=== PATIENT | female | born 1955 | race Caucasian/White ===

== ENCOUNTER 2023-11-06 08:06 | Outpatient (AMB) | payer BC, SELFPAY ==
--- NOTE | 2023-11-06 08:15 | AM.OFFWIN_ITS ---
Intake Vital Signs 11/06/23 08:24 Height 5 ft 1 in Weight 127 lb BMI 24.0 BP 110/70 Blood Pressure Location Lt brachial Position Sitting Pulse 71 Pulse Source Pulse Oximeter Temp 98.3 F Temp Source Oral Pulse Oximetry (%) 97 Oxygen Delivery Method Room Air Intake Visit Reasons: EP tight chest phlem discolored 262-190 Intake Note: pt is here for c.o tight chest congestion, phlem discolored Patient Tobacco Use Status: Never used Tobacco Allergies diclofenac [Arthrotec] Allergy (Unknown, Verified 11/06/23 08:16) Swelling misoprostol [Arthrotec] Allergy (Unknown, Verified 11/06/23 08:16) Swelling Do you need a note to return to daycare/school/sports/work: Yes HPI HPI Comments History of Present Illness Details 68 y/o female who presents to walk [facility] with c/o chest tightness, productive cough and hard of hearing on both ears. She reports that symptoms st arted last Friday. She has been taking OTC cold/cough remedies with minimal relief. Her PCP Rxd Cough medication with Codeine yesterday. [facility] Social History Patient Tobacco Use Status: Never used Tobacco Review of Systems Const All systems reviewed & are unremarkable except as noted in HPI and below Physical Exam Vital Signs: Last Vital Signs Temp 98.3 F 11/06/23 08:24 Pulse 71 11/06/23 08:24 BP 110/70 11/06/23 08:24 Pulse Ox 97 11/06/23 08:24 Oxygen Delivery Method Room Air 11/06/23 08:24 BMI result Body Mass Index 24.0 Const General: comfortable and no acute distress HEENT Head: Yes normocephalic Ears: external ears normal, TM abnormal obstructed by cerumen and unable to visualize TM bilaterally General nose exam: Abnormal mucous membranes and turbinates present boggy and erythematous and Epistaxis present on the right anterior source Face and sinus: Yes sinuses nontender Mouth: oropharynx normal and moist mucous membranes Throat: Yes posterior oropharynx normal Resp Effort & Inspection: normal respiratory effort Auscultation: clear to auscultation bilaterally Cardio Rate: regular rate Rhythm: regular rhythm Office Procedures Cerumen Removal Details: Patient tolerated procedure well. Advised to start using Debrox for 7 days. May rtc if not improved. From which ear canal was the cerumen removed: bilateral Removal: irrigation Notes: patient tolerated procedure well 13043-Bod Irrigation/Lavage Assessment & Plan Assessment & Plan (1) Chest congestion: Code(s): R09.89 - Other specified symptoms and signs involving the circulatory and respiratory systems Plan: - continue with cough medication (2) Cerumen impaction: Code(s): H61.20 - Impacted cerumen, unspecified ear Qualifiers: Laterality: bilateral Qualified Code(s): H61.23 - Impacted cerumen, bilateral Plan: - Debrox for 7 days - Ear lavage in clinic Orders: Orders AMB Cerumen Removal Today H61.23 - Impacted cerumen, bilateral Medications: New carbamide peroxide 6.5% (Debrox) 5 drps otic (ears) BID 15 mL 0RF 7 days Coding Level of Care Code Est Pt Level 3 (18882) Diagnoses Chest congestion R09.89 Bilateral impacted cerumen H61.23 Laterality: bilateral CPT Codes Office Procedure - CPT: 76012-Jvt Irrigation/Lavage ([id number]) Time Spent (min) 15
[2023-11-06 08:24] VITALS: BP 110/70; PULSE 71; TEMP 36.8; O2SAT 97; BMI 24.0
== END 2023-11-06 10:07 | disposition home or self-care (01) ==
PROVIDERS: PCP Internal Medicine; Visit Provider Nurse Practitioner Family
DX: R09.89 Other specified symptoms and signs involving the circulatory and respiratory systems (principal); H61.23 Impacted cerumen, bilateral
CPT/HCPCS: 69209; 99213

== ENCOUNTER 2023-12-11 08:01 | Outpatient (AMB) | payer BC, SELFPAY ==
--- NOTE | 2023-12-11 08:11 | AM.OFFWIN_ITS ---
Intake Vital Signs 12/11/23 08:12 Height 5 ft 1 in BP 108/62 Blood Pressure Location Rt brachial Position Sitting Pulse 84 Pulse Source Pulse Oximeter Temp 98.8 F Temp Source Oral Pulse Oximetry (%) 98 Oxygen Delivery Method Room Air Intake Visit Reasons: EP Chronic Cough Intake Note: pt says has chest pressure and has a cough and has been using cough meds had neg covid test Tue pt says all started Sun pt said she did have a sore throat for 2 days and that went away Patient Tobacco Use Status: Never used Tobacco Allergies diclofenac [Arthrotec] Allergy (Unknown, Verified 12/11/23 08:14) Swelling misoprostol [Arthrotec] Allergy (Unknown, Verified 12/11/23 08:14) Swelling HPI HPI Comments History of Present Illness Details 68 y/o female patient who presents to [facility] in clinic with c/o cough since Friday. Reports trying OTC cough remedies with no relief. [facility] Social History Patient Tobacco Use Status: Never used Tobacco Review of Systems Const All systems reviewed & are unremarkable except as noted in HPI and below Physical Exam Vital Signs: Last Vital Signs Temp 98.8 F 12/11/23 08:12 Pulse 84 12/11/23 08:12 BP 108/62 12/11/23 08:12 Pulse Ox 98 12/11/23 08:12 Oxygen Delivery Method Room Air 12/11/23 08:12 Const General: comfortable and no acute distress Orientation/consciousness: patient oriented x3 HEENT Head: Yes normocephalic Ears: external ears normal and TM's normal bilaterally General nose exam: Normal nasal mucous membranes and turbinates present Face and sinus: Yes sinuses nontender Mouth: moist mucous membranes Throat: Yes posterior oropharynx normal Resp Effort & Inspection: normal respiratory effort and able to speak in complete sentences Auscultation: clear to auscultation bilaterally, no crackles, no rales, no rhonchi and no wheezes Cardio Rate: regular rate Rhythm: regular rhythm Neuro General: patient oriented x3 Assessment & Plan Assessment & Plan (1) Cough in adult: Code(s): R05.9 - Cough, unspecified Plan: - OTC cough remedies - Rest - Warm fluids. Coding Level of Care Code Est Pt Level 3 (17882) Diagnoses Cough in adult R05.9 Time Spent (min) 15
[2023-12-11 08:12] VITALS: BP 108/62; PULSE 84; TEMP 37.1; O2SAT 98
== END 2023-12-11 10:32 | disposition home or self-care (01) ==
PROVIDERS: PCP Internal Medicine; Visit Provider Nurse Practitioner Family
DX: R05.9 Cough, unspecified (principal)
CPT/HCPCS: 99213

== ENCOUNTER 2025-04-15 07:54 | Outpatient (AMB) | payer BC, SELFPAY ==
--- OUTSIDE RECORDS SUMMARY | 2025-04-15 07:57 | XMS_ITS | Clinical Summary ---
Author Organization [facility] Address [address] [place] [address] Care Team Providers Care Workplace Rehabilitation Officer Name Role Phone Unavailable Primary Care Provider Unavailabl e Social History Tobacco Use Types Packs/Day Years Used Date Smoking Tobacco: Never Assessed Comments Unknown Sex and Gender Information Value Date Recorded Sex Assigned at Not on file Legal Sex Female 10:30 PM EST Gender Identity Not on file Sexual Orientation Not on file Plan of Treatment Health Maintenance Due Date Last Done Comments Breast Cancer Screening 1954 DTaP,Tdap,and Td Vaccines (1 - Tdap) 1973 Pneumococcal Vaccine: 50+ Ye ars (1 of 1 - PCV) 2004 Zoster Vaccines (1 of 2) 2004 Colorectal Cancer Screening: Colonoscopy 08/25/2022 Falls Risk Assessment 08/25/2022 Hepatitis C Screening 08/25/2022 Osteoporosis Screening (Bone Density Screening) 08/25/2022 Social Influencers of Health Screening 08/25/2022 COVID-19 Vaccine (1 - 2023-2 5 season) 2024 Depression Screening 09/22/2024 Influenza Vaccine (#1) 2025 RSV Immunization Adult Patie nts (1 - 1-dose 75+ series) 2029 HIB Vaccines Aged Out No longer eligi ble based on patient's age to complete this topic HPV Vaccines Aged Out No longer eligi ble based on patient's age to complete this topic Hepatitis A Vaccines Aged Out No long er eligible based on patient's age to complete this topic Hepatitis B Vaccines Aged Out No long er eligible based on patient's age to complete this topic IPV Vaccines Aged Out No longer eligi ble based on patient's age to complete this topic MMR Vaccines Aged Out No longer eligi ble based on patient's age to complete this topic Meningococcal ACWY Vaccine Aged Out N o longer eligible based on patient's age to complete this topic Meningococcal B Vaccine Aged Out No l onger eligible based on patient's age to complete this topic RSV Immunization Patients Un mauro 20 months Aged Out No longer eligible b ased on patient's age to complete this topic Varicella Vaccines Aged Out No longer eligible based on patient's age to complete this topic
--- OUTSIDE RECORDS SUMMARY | 2025-04-15 07:57 | XMS_ITS | Patient Health Record ---
Author Organization [facility] mason [place] Address [address] [place] [address] Care Team Providers Care Bread Slicer Machine Name Role Phone Natanael Del Angel MD Primary Care Provider Tejas Denis Unavailable [phone] Allergies Allergen (clinical drug ingredient) Drug/Non Drug Allergy documented on EMR Reaction Allergy Type Onset Date Status diclofenac / misoprostol Arthrotec facial swelling Drug Allergy Active Reason For Referral No Information Medications Medication SIG (Take, Route, Frequency, Duration) Notes Start Date End Date Status Vitamin D (Ergocalciferol) Active Acetaminophen-Codeine #3 300-30 MG (Schedule III Drug) Oral; Duration: 30 Unknown FLUoxetine HCl 20 MG Oral; Duration: 90 Active Vitamin B12 Active LFT . . . .; Duration: . 05/22/2016 Active valACYclovir HCl 500 MG Oral; Duration: 2 Unknown LamISIL 250 MG 1 tablet Orally Once a day; Duration: 30 days 05/22/2016 Active Social History Tobacco use other than smoking: Question Answer Notes Are you an other tobacco user? Yes Problems Problem Type SNOMED Code ICD Code Onset Dates Problem Status W/U Status Risk Notes Problem Tinea unguium (099097405) Tinea unguium (B35.1) Active confirmed Problem Plantar wart (25303584) Plantar wart (B07.0) Active confirmed Plan Of Treatment Pending Test Test Name Order Date [id number] Destruction, 1-14 05/22/2016 Insurance Providers Payer Name Payer Address Payer Phone Subscriber Number Group Number Insured Name Patient Relationship to Insured Coverage Start Date Coverage End Date [facility] [address] [place] [address] [phone] [id number] Renuka Velasquez Self - patient is the insured Medical (General) History Medical History History ICD Code Depression Osteoporosis Measles Mumps Chicken pox Surgical History Surgery Date(Month/Year) section , 01/02/87
--- OUTSIDE RECORDS SUMMARY | 2025-04-15 07:57 | XMS_ITS | Patient Health Record ---
Author Organization [facility] Address [address] [place] [address] Care Team Providers Care Nba Player Name Role Phone RAJWINDER ROJO MD Primary Care Provider Unavailab KASIA Chapman Unavailable [phone] Allergies Allergen (clinical drug ingredient) Drug/Non Drug Allergy documented on EMR Reaction Allergy Type Onset Date Status diclofenac / misoprostol Arthrotec swollen and red fact Drug Allergy Active Results Component Value Reference Range Notes [id number] IGP No Culture 30 Plus Reviewed date:01/18/2025 10:58:27 AM Interpretation: Performing Lab:[facility], [address] [place] [address], Phone - [phone], Director - [facility] Notes/Report: Clinical Information:VAG,CERV [id number] Dates / Results....09/26/2023 Other..............Post Menopausal No. of containers..01 ThinPrep Vial DIAGNOSIS: EPITHELIAL CELL ABNORMALITY. ATYPICAL GLANDULAR CELLS (AGC). Specimen adequacy: Satisfactory for evaluation. Endocervical and/or squamous metaplastic cells (endocervical component) are present. Clinician provided ICD10: Z0 1.419 Additional comment: ELEVATED SQUAMOUS MATURATION IS PRESENT FOR PATIENT AGE Performed by: Joe cardenas, Supervisor Title (ASCP) Electronically signed by: Wendy Dyson MD, Pathologist . . Pathologist provided ICD10: R87.619 Note: The Pap smear is a screening test designed to aid in the detection of premalignant and malignant conditions of the uterine cervix. It is not a diagnostic procedure and should not be used as the sole means of detecting cervical cancer. Both false-positive and false-negative reports do occur. . Test Methodology: This liquid based ThinPrep(R) pap test was screened with the use of an image guided system. HPV Aptima Negative Negative This nucleic acid amplification test detects fourteen high-risk HPV types (16,18,31,33,35,39,45,51,52,56, 58,59,66,68) without differentiation. HPV Genotype Reflex Criteria not met, HPV Genotype not performed. PDF Report Reviewed date:01/10/2025 10:05:45 AM Interpretation: Performing Lab:[facility], [address] [place] [address], Phone - [phone], Director - [facility] Notes/Report: Clinical Information:VAG,CERV [id number] Dates / Results....09/26/2023 Other..............Post Menopausal No. of containers..01 ThinPrep Vial Reason For Referral No Information Medications Medication SIG (Take, Route, Frequency, Duration) Notes Start Date End Date Status Montelukast Sodium 10 MG 1 tablet Orally Once a day Active Calcium Acetate Acti ve Ibuprofen 600 MG 1 tablet with food o r milk as needed Orally Three times a day Active Progesterone Active traZODone HCl 50 MG 1 tablet at bedtime as needed Orally Once a day Active Vitamin D Active Alendronate Sodium 70 MG 1 tablet 30 min utes before the first food, beverage or medicine of the day with plain water Orally Active Albuterol Sulfate HFA 108 (90 Base) MCG/ACT 1 puff as needed Inhalation every 4 hrs Not-Takin g Atorvastatin Calcium 10 MG 1 tablet Orally Once a day Active Social History Tobacco Use: Social History Observation Description Date Details (start date - stop date) Current Smoker NA - NA Sexual History Question Answer Notes Had sex in the past 12 months (vaginal, oral, or anal)? No Have you ever had a Sexually transmitted disease ? No Last menstrual period 1999 AUDIT-C (Standard) Question Answer Notes Did you have a drink contain ing alcohol in the past year? Yes How often did you have a dri nk containing alcohol in the past year? Monthly or less (1 point) How many drinks did you have on a typical day when you were drinking in the past year? 3 or 4 drinks (1 point) How often did you have six o r more drinks on one occasion in the past year? Declined to specify (0 point) Points 2 Interpretation Negative Tobacco Control (Standard) Question Answer Notes Tobacco use: Current smoker How often do you smoke cigarettes? Some days, bu t not every day How many cigarettes a day do you smoke? 5 or les s How soon after you wake up d o you smoke your first cigarette? 6-30 minutes Are you interested in quitting? Thinking about q uitting Problems Problem Type SNOMED Code ICD Code Onset Dates Problem Status W/U Status Risk Notes Problem Tobacco user (166984117) Nicotine dependence, cigarettes, uncomplicated (F17.210) Active confirmed Problem Diverticulosis o f intestine, part unspecified, without perforation or abscess with bleeding (K57.91) Active confirmed Problem COVID-19 (055286798) COVID-19 (U07.1) Active confirmed Vital Signs Temperature 98.0 degrees Fahrenheit 01/25/2025 Blood pressure diastolic 76 mm Hg 01/25/2025 Height 60 in 01/25/2025 Blood pressure systolic 124 mm Hg 01/25/2025 Weight 126 lbs 01/25/2025 BMI 24.61 kg/m2 01/25/2025 Encounters Encounter Location Date Provider Diagnosis [place] [address] [address] 12/28/2024 KASIA NEVES Encounter for gynecological examination (general) (routine) without abnormal findings Z01.419 ; Encounter for screening mammogram for malignant neoplasm of breast Z12.31 and Nicotine dependence, cigarettes, uncomplicated F17.210 [place] [address] [address] 01/25/2025 KASIA NEVES Unspecified abnormal cytological findings in specimens from cervix uteri R87.619 [place] [address] [address] 01/25/2025 KASIA NEVES [place] [address] [address] 01/06/2025 KASIA NEVES Assessments Encounter Date Diagnosis (ICD Code) Assessment Notes Treatment Notes Treatment Clinical Notes Section Notes 12/28/2024 Encounter for gynecological examination (general) (routine) without abnormal findings (ICD-10 - Z01.419) During the visit, the following areas of concern were addressed: Discussed stopping cervical cancer screening as per ASCCP guidelines. Advised continued annual pelvic exams. Patient encouraged to increase her level of exercise. SBE technique encouraged/tau ght. Patient reminded when annual mammogram is due. Patient encouraged to keep colon screening up to date. 12/28/2024 Encounter for screening mammogram for malignant neoplasm of breast (ICD-10 - Z12.31) 01/25/2025 Unspecified abnormal cytological findings in specimens from cervix uteri (ICD-10 - R87.619) Will refer for surgical consult, as I am unable to penetrate her cervix for full evaluation of the FRANK pap. There is also a lesion on the posterior lip of the cervix that I am unable to sample. 12/28/2024 Nicotine dependence, cigarettes, uncomplicated (ICD-10 - F17.210) Encouraged to stop smoking, including cannabis - advised to consider tinctures/edib les, but she states they don't work. Plan Of Treatment Pending Test Test Name Order Date MM Digital Screening Mammogram 3D 2024 Next Appt Details Provider Name:KASIAMartha Araujo, 01/02/2026 08:00:00 AM, [address] [facility], [address], [place], [address], Insurance Providers Payer Name Payer Address Payer Phone Subscriber Number Group Number Insured Name Patient Relationship to Insured Coverage Start Date Coverage End Date [employer] MEDICARE PPO [address] [place] [address] [id number] JANET VILLASENOR Self - patient is the insured Medical (General) History Medical History History ICD Code Mammographic heterogeneous density, bila teral breasts R92.333 Disorder of bone density and structure, unspecified M85.9 Low grade squamous intraepit helial lesion on cytologic smear of cervix (LGSIL) R87.612 Diverticulosis of intestine, part unspecified, without perforation or abscess with bleeding K57.91 COVID-19 U07.1 Surgical History Surgery Date(Month/Year) x 2 tubal ligation Varicose vein procedure 2010 Hospitalization History Reason Date(Month/Year) Diverticulitis 05/2021 childbirth
--- OUTSIDE RECORDS SUMMARY | 2025-04-15 07:57 | XMS_ITS | Clinical Summary ---
Author Organization [employer] Address [address] [place] [address] Care Team Providers Care Software Tools Build Engineer Name Role Phone Unavailable Primary Care Provider Unavailabl e Social History Tobacco Use Types Packs/Day Years Used Date Smoking Tobacco: Never Assessed Comments Unknown Sex and Gender Information Value Date Recorded Sex Assigned at Female 07/22/2022 10:23 AM EDT Legal Sex Female 10:23 AM EDT Gender Identity Female 07/22/2022 10:23 AM EDT Sexual Orientation Straight 07/22/2022 10 :23 AM EDT Plan of Treatment Health Maintenance Due Date Last Done Comments CT Colonography 1954 Colonoscopy 1954 Colorectal Cancer Screening 1954 Depression Screening 1954 FIT DNA/Cologuard 1954 FIT 1954 FOBT 1954 Sigmoidoscopy 1954 Alcohol/Substance Use Screening 1966 Tobacco Screening 1966 DTaP/Tdap/Td Vaccines (1 - Tdap) 1973 Mammogram 1994 Pneumococcal Vaccine: 50+ Years (1 of 1 - PCV) 2004 Zoster Vaccines (1 of 2) 2004 COVID-19 Vaccine (3 - 2023-2 5 season) 2024 11/02/2020, 10/05/2020 Influenza Vaccine (#1) 2025 RSV Patients and Patients Aged 60 years or older (1 - 1-dose 75+ series) 2029 HIB [...] patient's age to complete this topic Meningococcal Vaccine Aged Out No leslie carmela eligible based on patient's age to complete this topic RSV under 20 months Aged Out No longe r eligible based on patient's age to complete this topic Rotavirus Vaccines Aged Out No longer eligible based on patient's age to complete this topic
[2025-04-15 08:19] VITALS: BP 102/64; PULSE 90; TEMP 36.7; O2SAT 98; BMI 23.8
--- NOTE | 2025-04-15 08:19 | AM.OFFWIN_ITS ---
Intake Vital Signs 04/15/25 08:19 Height 5 ft 1 in Weight 126 lb BMI 23.8 BP 102/64 Blood Pressure Location Rt brachial Position Sitting Pulse 90 Pulse Source Pulse Oximeter Temp 98.1 F Temp Source Oral Pulse Oximetry (%) 98 Oxygen Delivery Method Room Air Intake Visit Reasons: EP sore throat Intake Note: presents with sore throat, pain swallowing, dry coughing, chest pressure Patient Tobacco Use Status: Never used Tobacco Allergies diclofenac (Arthrotec) Allergy (Unknown, Verified 04/15/25 08:24) Swelling misoprostol (Arthrotec) Allergy (Unknown, Verified 04/15/25 08:24) Swelling Do you need a note to return to daycare/school/sports/work: No HPI HPI Comments History of Present Illness Details This is a 69-year-old female with a past medical history of tobacco use, hyperlipidemia and reactive airway disease presenting for evaluation of a sore throat that she has had for the past 5 days. Patient states that her symptoms have not improved and she reports having fevers earlier in the week that have now resolved. Patient has been taking Robitussin with codeine which is prescribed by her primary care provider for her cough. Patient denies having any ear pain or overt shortness for breath. Patient does report having chest pain/pressure when coughing over the past 2 days. [facility] Social History Patient Tobacco Use Status: Never used Tobacco Review of Systems Const All systems reviewed & are unremarkable except as noted in HPI and below Reports no additional complaints Eyes Reports no additional complaints ENT Denies otalgia, Denies mouth pain, Denies post nasal drip, Denies tinnitus, Denies sinus pressure, Reports sore throat, Denies throat swelling and Denies tongue swelling Card Reports chest pain ( pressure ) and Denies dyspnea Resp Reports no additional complaints, Reports cough, Denies hemoptysis and Denies dyspnea GI Reports no additional complaints Reports no additional complaints Musc Reports no additional complaints Skin/Breast Reports system reviewed and no additional complaints, except as documented Neuro Reports no additional complaints Psych Reports no additional complaints Endo Reports no additional complaints Roel/Lymph Reports no additional complaints Aller/Immun Reports no additional complaints, Denies throat swelling and Denies tongue swelling Physical Exam Vital Signs: Last Vital Signs Temp 98.1 F 04/15/25 08:19 Pulse 90 04/15/25 08:19 BP 102/64 04/15/25 08:19 Pulse Ox 98 04/15/25 08:19 Oxygen Delivery Method Room Air 04/15/25 08:19 BMI result Body Mass Index 23.8 Patient is afebrile. Const General: cooperative, comfortable and no acute distress; No ill appearing Nutritional Appearance: average body habitus Orientation/consciousness: patient oriented x3 Limitations: no limitations HEENT Head: Yes normal to inspection and Yes normocephalic Ears: hearing grossly normal bilaterally, external ears normal, TM's normal bilaterally and EAC's normal General nose exam: Normal external nose present Face and sinus: Yes normal facial exam and Yes sinuses nontender Mouth: Normal oral and palatal mucosa present and moist mucous membranes Teeth and gingiva: dentition normal Throat: Yes posterior oropharynx normal (There is no edema, erythema or exudates of the posterior oropharynx) and No postnasal drainage Eyes General: appearance normal, both eyes and all related structures Resp Effort & Inspection: normal respiratory effort, able to speak in complete sentences, no audible wheezes, no cough and respiratory effort not decreased Auscultation: clear to auscultation bilaterally Cardio Rate: regular rate Rhythm: regular rhythm Skin General skin exam: no rashes or lesions noted Neuro General: patient oriented x3 Psych Appearance: grossly normal Mental Status: mental status grossly normal Insight: Good insight present (Psych) Judgement: Good judgement present (Psych) Results Reviewed Results Reviewed: Rapid strep is negative. EKG normal sinus rhythm rate of 78 beats per minute without ischemic changes Assessment & Plan Assessment & Plan (1) Pharyngitis: Comment: rapid strep test is negative and there is no evidence of exudates, erythema or edema. Code(s): J02.9 - Acute pharyngitis, unspecified Qualifiers: Pharyngitis/tonsillitis etiology: unspecified etiology Qualified Code(s): J02.9 - Acute pharyngitis, unspecified Plan: Tylenol as needed for discomfort, Increase clear fluids daily. (2) Chest pressure: Comment: EKG reveals normal sinus rhythm without evidence of ischemia. Limitations of testing without serial troponins are discussed with the patient. Patient declines transferred to the ED at this time. She will monitor her symptoms and go to the emergency department for any changes in the character of her chest discomfort. Code(s): R07.89 - Other chest pain Plan: Patient will go to the emergency department for any worsening of her symptoms or change in the character of her chest pressure. Orders: Orders AMB Rapid Strep Screen Today J02.9 - Acute pharyngitis, unspecified, Z13.9 - Encounter for screening, unspecified AMB EKG-In Office Today R07.89 - Other chest pain Coding Level of Care Code Est Pt Level 4 (80309) Diagnoses Pharyngitis, unspecified etiology J02.9 Pharyngitis/tonsillitis etiology: unspecified etiology Chest pressure R07.89 Time Spent (min) 35
== END 2025-04-15 10:39 | disposition home or self-care (01) ==
PROVIDERS: PCP Internal Medicine; Visit Provider Physician Assistant
DX: J02.9 Acute pharyngitis, unspecified (principal); R07.89 Other chest pain

== ENCOUNTER → 2025-04-15 07:54 | Outpatient (BNVA) | payer BC, SELFPAY | PROVIDERS: PCP Internal Medicine; Visit Provider Physician Assistant | DX: E78.5 Hyperlipidemia, unspecified (principal); J02.9 Acute pharyngitis, unspecified; R07.89 Other chest pain | CPT/HCPCS: 93005 ==